=== PATIENT | female | born 1960 | race Caucasian/White ===

== ENCOUNTER 2021-10-10 19:01 | Emergency (ER) | payer MEDICAID ==
[~2021-10-10] VITALS: Ht 154.9 cm; Wt 100.7 kg
[~2021-10-10 19:01] MED LIST: ALBUTEROL2.5 MG/3 M INH; COZAAR25 MG PO; FLUTICASONE PRO16 GM NAS; GLIPIZIDE ER5 MG PO; IBUPROFEN600 MG PO; JANUVIA100 MG PO; KEFLEX500 MG PO; LISINOPRIL10 MG PO; LOPERAMIDE2 MG PO; LORATADINE10 MG PO; NORCO 5-325 TA1 EACH PO; PRAVASTATIN SOD10 MG PO; PREDNISONE20 MG PO; PYRIDIUM200 MG PO; SERTRALINE HCL25 MG PO; TRAZODONE HCL100 MG PO; VENTOLIN HFA18 GM INH
[2021-10-10] MEDS ORDERED: LEVOTHYROXINE100 MC2 PO (19:19)
[2021-10-10] MEDS ORDERED: OXYBUTYNIN CHLO10 MG PO (19:20)
[2021-10-10] MEDS ORDERED: ROPINIROLE HCL1 MG PO (19:20)
[2021-10-10] MEDS ORDERED: GLIPIZIDE XL5 MG PO (19:20)
== END 2021-10-10 20:42 | disposition home or self-care (01) ==
LOC: ED 19:01
DX: R53.83 Other fatigue (principal); E11.9 Type 2 diabetes mellitus without complications; J45.909 Unspecified asthma, uncomplicated; I10 Essential (primary) hypertension; E66.9 Obesity, unspecified; Z88.6 Allergy status to analgesic agent; Z88.5 Allergy status to narcotic agent; Z79.899 Other long term (current) drug therapy
CPT/HCPCS: 99283